=== PATIENT | female | born 1985 | race Caucasian/White ===

== ENCOUNTER → 2018-05-21 | Outpatient (CLI) | payer BC ==
--- NOTE | 2018-05-22 07:59 | US ---
EXAMINATION TYPE: US abdomen complete DATE OF EXAM: 05/21/2018 COMPARISON: US 2015 CLINICAL HISTORY: R10.30 Lower Abdominal Pain. Left pelvic pain x 1 week ago EXAM MEASUREMENTS: Liver Length: 17.4 cm Gallbladder Wall: 0.2 cm CBD: 0.3 cm Spleen: 10.7 cm Right Kidney: 11.3 x 4.5 x 4.8 cm Left Kidney: 11.1 x 5.4 x 5.0 cm Pancreas: visualized portions wnl, limited by overlying midline bowel gas Liver: wnl Gallbladder: wnl Evidence for sonographic Villegas's sign: no CBD: visualized portions wnl, limited by overlying bowel gas Spleen: 1.2 x 1.0 x 1.1cm isoechoic exophytic area, small splenule Right Kidney: wnl Left Kidney: wnl Upper IVC: wnl Abd Aorta: wnl The liver is homogenous. The intrahepatic portion of the IVC and proximal abdominal aorta are within normal limits. There is no evidence of cholelithiasis. Common bile duct is unremarkable. The visu alized portions of the pancreas are homogenous. The spleen is unremarkable. Kidneys are symmetric a nd free of hydronephrosis. No renal lesions are seen. IMPRESSION: Unremarkable abdominal ultrasound. No sonographic evidence of cholelithiasis or acute cho lecystitis.
--- NOTE | 2018-05-22 08:00 | US ---
EXAMINATION TYPE: US pelvic complete DATE OF EXAM: 05/21/2018 COMPARISON: US 2015 CLINICAL HISTORY: R10.30 Lower Abdominal Pain. Left pelvic pain 1 week ago, 2, para 2, patien t has IUD TECHNIQUE: . Transabdominal sonographic images of the pelvis were acquired. Date of LMP: 05/16/2018 EXAM MEASUREMENTS: Uterus: 7.9 x 4.3 x 5.8 cm Endometrial Stripe: 0.6 cm Right Ovary: 3.0 x 2.1 x 2.5 cm Left Ovary: 2.9 x 2.2 x 2.4 cm 1. Uterus: anteverted 2. Endometrium: wnl, IUD seen in place 3. Right Ovary: wnl, physiologic follicular change 4. Left Ovary: wnl a physiologic follicular change 5. Bilateral Adnexa: wnl 6. Posterior cul-de-sac: wnl IMPRESSION: Appropriately placed central intrauterine device and physiologic follicular change of the ovaries. Overall unremarkable exam.
== END | disposition home or self-care (01) ==
LOC: RADUSWWP 15:41
PROVIDERS: ATTEND Family Medicine
DX: R10.30 Lower abdominal pain, unspecified (principal); Z97.5 Presence of (intrauterine) contraceptive device
CPT/HCPCS: 76700; 76856